=== PATIENT | male | born 1995 | race Caucasian/White ===

== ENCOUNTER 2019-11-22 02:15 | Emergency (ER) | payer OTHER ==
[~2019-11-22] VITALS: Ht 170.2 cm; Wt 90.7 kg
[2019-11-22] MEDS ORDERED: GABAPENTIN (02:31)
[2019-11-22] MEDS ORDERED: VYVANCE (02:32)
[2019-11-22] MEDS ORDERED: ALPRAZOLAM (02:32)
[2019-11-22 03:02] LABS: BE -3.4 mmol/L (-2 to +3); PCO2 39.2 mmHg (35.0-45.0); PO2 92.8 mmHg (75.0-100.0)
[2019-11-22 04:10] VITALS: BP 120/67
== END 2019-11-22 04:10 | disposition home or self-care (01) ==
LOC: M.ERS 02:15
PROVIDERS: Personal Emergency Response Attendant
DX: B34.9 Viral infection, unspecified (principal); Z20.828 Contact with and (suspected) exposure to other viral communicable diseases

== ENCOUNTER 2020-07-16 19:01 | Emergency (ER) | payer OTHER ==
[~2020-07-16] VITALS: Ht 170.2 cm; Wt 81.7 kg
[~2020-07-16 19:01] MED LIST: ALPRAZOLAM; GABAPENTIN; VYVANCE
[2020-07-16 20:27] VITALS: BP 116/80
== END 2020-07-16 20:29 | disposition short-term general hospital (02) ==
LOC: M.ERS 19:01
DX: T24.201A Burn of second degree of unspecified site of right lower limb, except ankle and foot, initial encounter (principal); T24.102A Burn of first degree of unspecified site of left lower limb, except ankle and foot, initial encounter; T22.291A Burn of second degree of multiple sites of right shoulder and upper limb, except wrist and hand, initial encounter; X08.8XXA Exposure to other specified smoke, fire and flames, initial encounter; Y93.89 Activity, other specified; Y92.89 Other specified places as the place of occurrence of the external cause; Y99.9 Unspecified external cause status